=== PATIENT | male | born 1980 | race Caucasian/White ===

== ENCOUNTER → 2016-04-15 09:00 | Day surgery (SDC) | payer BC ==
--- NOTE | 2016-04-04 07:04 | HP ---
PREOPERATIVE HISTORY AND PHYSICAL: DATE OF PREOPERATIVE HISTORY AND PHYSICAL EXAMINATION: , 04/03/16. DATE OF ADMISSION: 04/15/16 This patient is scheduled for same-day surgery admission by Dr. Pedraza on 04/15/16. ATTENDING SURGEON: Dr. Raul Pedraza (dictated by Larissa Smiley NP). CHIEF COMPLAINT: Right inguinal hernia. HISTORY OF PRESENT ILLNESS: The patient is a 36-year-old male referred to Dr. Pedraza from nurse practitioner, Dina Garnett for evaluation of right inguinal hernia. The patient states it has been present for 5 years and spontaneously reduces when he lies down. He denies any signs or symptoms to suggest incarceration or strangulation. His work involves very heavy lifting. He denies any dysuria and is having regular formed bowel movements. Dr. Pedraza examines the patient and notes a large reducible visible right inguinal hernia while standing; Dr. Pedraza has recommended laparoscopic right inguinal hernia repair with mesh as a same-day surgery procedure at [facility] and described the nature of the surgical procedure, the relevant risks and benefits , and today, I reviewed the expected postoperative care and recovery. The patient has had a chance to ask questions and stated that he understands the information and is satisfied with the answers given to his questions. He will sign consent on the day of surgery. PAST MEDICAL HISTORY: Generally healthy. No acute or chronic conditions. PAST SURGICAL HISTORY: He has never had surgery. MEDICATIONS: None currently. ALLERGIES: No known drug allergies. No food or latex allergies. FAMILY HISTORY: No known anesthesia complications, bleeding tendencies, or clotting disorders. SOCIAL HISTORY: He is and is employed as a mechanical systems control engineer; he quit smoking in 2014. He denies the use of alcohol or other substances. REVIEW OF SYSTEMS: Negative to detailed questioning; he states that he is a recovering alcoholic and does not want any narcotic prescriptions for postop use. He denies any bleeding tendencies, has never received a blood transfusion. Denies any history of deep vein thrombosis or pulmonary embolism, and has received local anesthesia without any complications. PHYSICAL EXAMINATION GENERAL SURVEY: The patient is a 36-year-old male, well developed, obese, in no acute distress. VITAL SIGNS: Height 71 inches, weight 256 pounds, body mass index 35.7, blood pressure 124/82, pulse 78 and regular, respiratory rate 16, temperature 97.1. HEENT: Benign. NECK: Supple. No cervical lymphadenopathy. LUNGS: Breath sounds bilaterally clear and equal. HEART: Regular rate and rhythm. No murmurs or rubs appreciated. ABDOMEN: Obese, active bowel sounds, soft and nondistended, nontender throughout. No obvious masses, organomegaly, or umbilical hernia. Inguinal exam as done by Dr. Pedraza revealed a large reducible visible right inguinal hernia seen while standing. EXTREMITIES: Warm without edema or skin ulcerations. RECTAL EXAM: Deferred. NEUROLOGIC: Alert and oriented x3. Steady gait. SKIN: Warm, dry, intact. IMPRESSION: Right inguinal hernia. PLAN: Same-day surgery admission to Dr. Pedraza' service on 04/15/16, for laparoscopic right inguinal hernia repair with mesh. LARISSA SMILEY NP CC: Dr. Pedra[facility], [facility]; Dina Garnett NP* [id number]/[facility] #: [id number] [facility] SYSTEM[facility]
[~2016-04-15 09:00] MED LIST: Acetaminophen IV 1GM/100ML * 100 ML IVPB ONE; Acetaminophen IV 1GM/100ML * 100 ML ONE; Buffered Lidocaine 1% SYR 3ML* 3 ML/SYR SYRINGE INTRADERM ONE; Buffered Lidocaine 1% SYR 3ML* 3 ML/SYR SYRINGE ONE; Bupivacaine 0.5% W/EPI SDV* 30 ML VIAL ONE; Dexamethasone TAB* 4 MG ONE; Dexamethasone TAB* 4 MG PO ONE; Famotidine IV* 10 MG/ML 2 ML (20 mg) IV ONE; Famotidine IV* 10 MG/ML 2 ML (20 mg) ONE; Glycopyrrolate IV* 0.2 MG/ML 1 ML VIAL ONE; Ketorolac INJ* 30 MG/ML 1 ML VIAL ONE; Lidocaine 2% MPF* 2 ML VIAL ONE; Midazolam* 1 MG/ML 5 ML VIAL (5 MG) ONE; Morphine INJ* 2 MG/ML 1 ML CARPUJECT IV PRN; Neostigmine Methylsulfate* 2 MG/2 ML SYRINGE ONE; Ondansetron INJ* 2 MG/ML VIAL IV PRN; Ondansetron INJ* 2 MG/ML VIAL ONE; PROCHLORPERAZINE INJ 5 MG/ML 2 ML VIAL IV PRN; Propofol* 10 MG/ML 20 ML BTL IV PUSH ONE; Rocuronium* 10 MG/ML VIAL ONE; ceFAZolin 2 GM PREMIX (*) 2 GM/50 ML BAG IVPB ONE; fentaNYL* 50 MCG/ML 2 ML VIAL (100 MCG VIAL) IV PRN; fentaNYL* 50 MCG/ML 2 ML VIAL (100 MCG VIAL) ONE
[2016-04-15 15:44] VITALS: BP 119/74
--- NOTE | 2016-04-17 03:38 | OP ---
OPERATIVE REPORT: DATE OF OPERATION: 04/15/16 - SDS DATE OF : 84 SURGEON: Raul Pedraza MD BILINGUAL CUSTOMER SERVICE SPECIALIST: KEILY Mendez ANESTHESIOLOGIST: Dr. Keys. ANESTHESIA: General endotracheal. PRE-OP DIAGNOSIS: Right inguinal hernia. POST-OP DIAGNOSIS: Right inguinal hernia. OPERATIVE PROCEDURE: Laparoscopic preperitoneal repair of right inguinal hernia with mesh. ESTIMATED BLOOD LOSS: Minimal. IV FLUIDS: Crystalloid. SPECIMEN: None. DRAINS: None. COMPLICATIONS: None. COUNTS: The instrument, needle, and sponge counts were correct. DESCRIPTION OF PROCEDURE: The patient was brought to the operating room and placed on the table supine. Sequential compression devices were placed on both lower extremities. General anesthesia was administered and a Esparza catheter was placed. He received appropriate intravenous antibiotics. Sterile prep and drape of the abdomen was performed. Time-out was performed. Local anesthetic was infiltrated into the skin and soft tissue prior to making each incision. A curvilinear infraumbilical incision was created and the subcutaneous tissues were divided with cautery. Anterior rectus fascia was identified to the right of midline and incised transversally. Underlying muscle fibers were retracted laterally and a preperitoneal balloon dissector was placed down to the pubic symphysis. Insufflation of the dissecting balloon was performed under direct visualization preferentially to dissect down to right side. After removing the balloon, a 12-mm blunt port was placed and carbon dioxide was insufflated to a pressure of 10 mmHg. Two 5-mm trocars were placed in the lower midline of the abdomen. Inspection revealed a direct inguinal hernia. Dissection proceeded medial to laterally identifying and preserving the inferior epigastric vessels and the components of the spermatic cord. The contents of the direct hernia were reduced and inspection revealed no evidence of indirect inguinal hernia. The repair was then performed with the Bard 3D Max mesh using a large patch for the right side. This was positioned into the preperitoneal space and unfurled to cover the direct, indirect, and femoral spaces. The CapSure tacker was used to secure the mesh to the Gualberto's ligament and to the pubic tubercle. Additional tacker was placed into the anterior muscle. The mesh was held in position while the space was desufflated and then the ports were removed. The fascia was then closed with 0 Polysorb in an interrupted fashion. The skin incisions were closed with 4-0 Monocryl in a subcuticular fashion. Steri- Strips were applied. The patient tolerated the procedure well. He was extubated and transferred to the Recovery in stable condition. CC: Dina Garnett NP* [id number]/[facility] #: [id number] MTDD
== END | disposition home or self-care (01) ==
LOC: OR 09:00
PROVIDERS: ATTEND Surgery
DX: K40.90 Unilateral inguinal hernia, without obstruction or gangrene, not specified as recurrent (principal); Z87.891 Personal history of nicotine dependence
CPT/HCPCS: C1781; J0690; J1885; J2250; J2405; J2704; J3010; J8540